=== PATIENT | female | born 1980 | race Caucasian/White ===

== ENCOUNTER 2021-10-15 11:41 | Emergency (ER) | payer BC ==
[~2021-10-15] VITALS: Ht 167.6 cm; Wt 90.7 kg
[2021-10-15 11:43] VITALS: BP_SYST 134
--- NOTE | 2021-10-15 11:50 | NUR ---
ER DR. GALLAGHER EXAMINING PT
[2021-10-15] MEDS ORDERED: MECLIZINE HCL 25 MG TABLET (ANITVERT) PO ONE ×2 (12:00→16:30)
[2021-10-15] MEDS ORDERED: METOCLOPRAMIDE HCL 10 MG/2 ML VIAL IVP ONE (12:00)
--- NOTE | 2021-10-15 13:05 | NUR ---
Placed in room 2 . Placed on hall monitor, blood pressure machine and pulse oximeter. To gown for exam. Side rails up.
--- NOTE | 2021-10-15 13:10 | NUR ---
PT BIBA FROM HOME C/O DIZZINESS, JULIAN AND NAUSEA STARTING THIS AM. PT PRESENTS AAOX4, VSS, ABLE TO TOLERATE WATER PO WITHOUT VOMITTING.
[2021-10-15 14:32] LABS: BASOPHILS % (AUTO) 0.5 % (0.0-2.0); EOSINOPHILS % (AUTO) 0.1 % (0.0-4.0); HEMATOCRIT 39.3 % (36-48); HEMOGLOBIN 12.8 g/dL (12.0-16.0); LYMPHOCYTES # (AUTO) 1.7 K/uL (1.0-5.5); LYMPHOCYTES % (AUTO) 17.6 % (20.5-51.5); MEAN CORPUSCULAR HEMOGLOBIN 28 pg (27-31); MEAN CORPUSCULAR HGB CONC 33 % (32-36); MEAN CORPUSCULAR VOLUME 87 fL (79.0-98.0); MONOCYTES # (AUTO) 0.3 K/uL (0.0-1.0); MONOCYTES % (AUTO) 3.7 % (1.7-9.3); NEUTROPHILS # (AUTO) 7.5 K/uL (1.8-7.7); NEUTROPHILS % (AUTO) 78.1 % (40.0-70.0); PLATELET COUNT (AUTO) 324 K/uL (130-430); RED BLOOD CELL COUNT(AUTO) 4.55 MIL/uL (4.2-6.2); RED CELL DISTRIBUTION WIDTH 14.3 % (9.0-15.0); WHITE BLOOD COUNT (AUTO) 9.5 K/uL (4.8-10.8)
[2021-10-15 14:45] LABS: CALCIUM 9.3 mg/dL (8.4-11.0); CREATININE 0.7 mg/dL (0.55-1.30)
[2021-10-15 14:54] LABS: ALBUMIN 3.5 g/dL (3.4-4.8); TOTAL BILIRUBIN 0.1 mg/dL (0.0-1.0)
--- NOTE | 2021-10-15 15:10 | NUR ---
PT RESTING IN BED, VSS, NO DISTRESS NOTED
[2021-10-15] MEDS ORDERED: ONDA-8 TL (16:22)
[2021-10-15] MEDS ORDERED: MECL-109 PO (16:22)
[2021-10-15] MEDS ORDERED: LORazepam 1 MG TABLET PO ONE (16:30)
--- NOTE | 2021-10-15 16:40 | NUR ---
PT REQUESTING CRUTCHES STATING THAT SHE ISN'T GOING HOME AND IS UNABLE TO GET HERS AND CANNOT WALK ON RIGHT BOOT FROM PREVIOUS FX. ER DR. BURCIAGA MADE AWARE
--- NOTE | 2021-10-15 16:43 | NUR ---
Patient given written and verbal discharge instructions and verbalizes understanding. ER MD discussed with patient the results and treatment provided. Patient in stable condition. ID arm band removed. IV catheter removed intact and dressing applied, no active bleeding. Rx of MECLIZINE AND ZOFRAN given. Patient educated on pain management and to follow up with PMD. Pain Scale 0/10. Opportunity for questions provided and answered. Medication side effect fact sheet provided.
[2021-10-15 16:44] VITALS: BP_SYST 127
== END 2021-10-15 16:43 | disposition home or self-care (01) ==
LOC: SED 11:41
DX: H81.10 Benign paroxysmal vertigo, unspecified ear (principal); Z79.899 Other long term (current) drug therapy
CPT/HCPCS: 36415; 70450; 71045; 76376; 80053; 81002; 81025; 84484; 85025; 93005; 96374; 99285; J2765; J8597